=== PATIENT | female | born 1990 | race Caucasian/White ===

== ENCOUNTER 2017-02-03 11:57 | Emergency (ER) | payer OTHER ==
--- NOTE | 2017-02-03 12:40 | ER Document Report ---
HPI - HPI Patient complains to provider of: BUG IN LEFT EAR, EAR LOBES INFECTED Onset: Other - BUG LEFT EAR LAST NIGHT EAR LOBES INFECTED ONE MONTH Onset/Duration: Sudden Quality of pain: Throbbing Severity: Moderate Pain Level: 3 Context: Patient states she wore some cheap earrings and her earlobes have been infected for about 1 month. Associated Symptoms: Earache Exacerbated by: Denies Relieved by: Denies Similar symptoms previously: No Recently seen / treated by doctor: No - ROS ROS below otherwise negative: Yes Systems Reviewed and Negative: Yes All other systems reviewed and negative - CONSTITUTIONAL Constitutional: DENIES: Fever - EENT EENT: REPORTS: Ear Pain - NEURO Neurology: DENIES: Headache - CARDIOVASCULAR Cardiovascular: DENIES: Chest pain - RESPIRATORY Respiratory: DENIES: Trouble Breathing - GASTROINTESTINAL Gastrointestinal: DENIES: Abdominal Pain - URINARY Urinary: DENIES: Dysuria - REPRODUCTIVE Reproductive: DENIES: : - MUSCULOSKELETAL Musculoskeletal: DENIES: Extremity pain - DERM Skin Color: Normal Past Medical History - General Information source: Patient - Social History Smoking Status: Never Smoker Frequency of alcohol use: None Drug Abuse: None Lives with: Family Family History: Reviewed & Not Pertinent Patient has suicidal ideation: No Patient has homicidal ideation: No Pulmonary Medical History: Reports: Hx Asthma - CHILD Neurological Medical History: Denies: Hx Seizures Endocrine Medical History: Reports: Hx Diabetes Mellitus Type 2, Hx Hypothyroidism Renal/ Medical History: Reports: Hx Ovarian Cysts Past Surgical History: Reports: Hx Myringotomy, Hx Tonsillectomy. Denies: Hx Hysterectomy - Immunizations Immunizations up to date: Yes Hx Diphtheria, Pertussis, Tetanus Vaccination: Yes Vertical Provider Document - CONSTITUTIONAL Agree With Documented VS: Yes Exam Limitations: No Limitations General Appearance: WD/WN, No Apparent Distress - INFECTION CONTROL TRAVEL OUTSIDE OF THE [place] IN LAST 30 DAYS: No - HEENT HEENT: Atraumatic, Normocephalic Notes: Left earlobe red with firm nodule. Dried crusting noted. Right earlobe mild erythema, no drainage. No foreign body seen in left ear. Patient does have some cerumen. - RESPIRATORY Respiratory: Breath Sounds Normal, No Respiratory Distress O2 Sat by Pulse Oximetry: 98 - CARDIOVASCULAR Cardiovascular: Regular Rate, Regular Rhythm - GI/ABDOMEN Gastrointestinal: Abdomen Soft - MUSCULOSKELETAL/EXTREMETIES Musculoskeletal/Extremeties: AXEL MCDUFFIE - NEURO Level of Consciousness: Awake, Alert, Appropriate - DERM Integumentary: Warm, Dry Course - Re-evaluation Re-evalutation: 02/03/17 14:14 As patient was being discharged, she states she slept with her ex- who called her and told her he had chlamydia. Patient is requesting a test. Denies symptoms. 02/03/17 14:18 02/03/17 14:18 Left ear was irrigated and some cerumen was removed. No foreign body. Patient tolerated procedure well. 02/03/17 16:16 Patient notified of negative gonorrhea and chlamydia. - Vital Signs Vital signs: Temp Pulse Resp BP Pulse Ox 98.4 F 80 16 113/74 98 02/03/17 12:06 02/03/17 12:06 02/03/17 12:06 02/03/17 12:06 02/03/17 12:06 Discharge - Discharge Clinical Impression: Otalgia, left ear, STD exposure Cellulitis of earlobe Qualifiers: Laterality: bilateral Qualified Code(s): H60.13 - Cellulitis of external ear, bilateral Condition: Good Disposition: HOME, SELF-CARE Additional Instructions: no foreign body was seen in your ear today, some wax was removed. tylenol or motrin for ear pain antibiotics for infection to ear lobes from earrings. you will be notified of STD testing. follow up with your PCP for recheck next week return as needed. Prescriptions: Cephalexin [Cephalexin 500 MG Capsule] 1 cap PO QID #28 capsule
[2017-02-03] MEDS ORDERED: AZITHROMYCIN 250 MG TABLET PO ONE (14:17)
[2017-02-03 14:41] VITALS: BP 109/71
[2017-02-03 15:54] LABS: CHLAM PCR NOT DETECTED (NOT DETECT)
== END 2017-02-03 14:30 | disposition home or self-care (01) ==
LOC: ER 11:57
DX: H60.13 Cellulitis of external ear, bilateral (principal); Z20.2 Contact with and (suspected) exposure to infections with a predominantly sexual mode of transmission; H61.22 Impacted cerumen, left ear; H92.02 Otalgia, left ear; E11.9 Type 2 diabetes mellitus without complications
CPT/HCPCS: 87491; 87591; 99283